=== PATIENT | male | born 1960 | race Caucasian/White ===

== ENCOUNTER 2016-12-26 18:08 | Emergency (ER) | payer OTHER ==
[~2016-12-26] VITALS: Ht 182.9 cm; Wt 109.1 kg
[~2016-12-26 18:08] MED LIST: ADVIL PM1 TABLET PO; ADVIL200 MG PO; AMBIEN5 MG PO; AMITIZA24 MICROGR PO; ATIVAN0.5 MG PO; Advil PM PO; BACLOFEN10 MG PO; CITALOPRAM HBR20 MG PO; CITALOPRAM HBR40 MG PO; CLONIDINE HCL0.1 MG PO; DILAUDID4 MG PO; ECOTRIN325 MG PO; GABAPENTIN600 MG PO; GLUCOPHAGE1000 MG PO; GLUCOPHAGE500 MG PO; HYDROMORPHONE; JANUVIA25 M1 PO; LISINOPRIL10 MG PO; METFORMIN HCL500 MG PO; MORPHINE; MORPHINE PAIN PUMP; OMEPRAZOLE40 M1 PO; PERCOCET 10/1 TABLET PO; PRAVACHOL80 MG PO; PRAVASTATIN SOD20 MG PO; VALIUM2 MG PO; VALIUM5 MG PO; VERAPAMIL HCL180 MG PO; VERELAN 180 MG180 MG PO; ZYRTEC10 M3 PO; Zestril,Prinivil PO
[2016-12-26 19:18] LABS: EOSINOPHIL (%) 0.2 % (0-5); HEMATOCRIT 41.1 % (38.0-50.0); IMMATURE GRANULOCYTE (%) 0.8 % (0.0-0.7); IMMATURE GRANULOCYTE COUNT 0.1 K/uL; INSTRUMENT ABS NEUTROPHIL CT 10.7 K/uL; LYMPHOCYTE COUNT 0.6 K/uL (1.0-2.8); MCH 28.5 PG (29.0-34.0); MCHC 32.6 G/DL (30.0-36.0); MCV 87.4 FL (86-99); MEAN PLAT.VOLUME 10.5 uM^3 (9.0-12.4); MONOCYTE (%) 4.5 % (3-12); MONOCYTE COUNT 0.5 K/uL (0-0.8); NEUTROPHIL (%) 89.2 % (45-76); NEUTROPHIL COUNT 10.7 K/uL (1.8-6.4); PLATELET COUNT 176 K/uL (156-360); RBC DIS.WIDTH-CV 13.4 % (11.8-14.6); RBC DIS.WIDTH-SD 42.9 % (39-53)
[2016-12-26 19:29] LABS: CHLORIDE 108 mEq/L (99-109); SODIUM 144 mEq/L (136-147)
[2016-12-26 19:32] LABS: GLUCOSE 187 mg/dL (70-99)
[2016-12-26 19:33] LABS: ANION GAP 12 MEQ/L (2-14)
[2016-12-26 19:34] LABS: TOTAL BILIRUBIN 0.3 mg/dL (0.0-1.0)
[2016-12-26 19:35] LABS: ALKALINE PHOSPHATASE 126 IU/L (3-129); GFR ESTIMATE (CALCULATED) 35 mL/min/
[2016-12-26 19:36] LABS: UREA NITROGEN (BUN) 21 mg/dL (9-23)
[2016-12-26 19:38] LABS: CREATINE KINASE 459 IU/L (1-294); TOTAL CK 459 IU/L (1-294)
[2016-12-26 19:41] LABS: TROP-I INTERPRETATION NEGATIVE; TROPONIN-I < 0.01 ng/mL (0.0-0.30)
[2016-12-26 19:45] LABS: CK-MB 3.7 ng/mL (0.0-4.9)
[2016-12-26 21:03] LABS: ADD MIUA? YES; BILIRUBIN NEGATIVE; BLOOD MODERATE; COLOR YELLOW ((YELLOW)); GLUCOSE (STRIP) NEGATIVE; KETONES NEGATIVE; LEUKOCYTES NEGATIVE; NITRITE NEGATIVE; PROTEIN (STRIP) 30; SPECIFIC GRAVITY 1.011 (1.000-1.030); UROBILINOGEN 0.2 MG/DL (0.2-1.0)
[2016-12-26 21:12] LABS: BACTERIA NONE SEEN /HPF; EPITHELIAL CELLS NONE SEEN /HPF; HYALINE CASTS 0-5 /LPF; MUCUS TRACE /LPF; RED BLOOD CELLS 0-5 /HPF (0-5); UCUL ADDED? NO; WHITE BLOOD CELLS 0-5 /HPF (0-5)
[2016-12-26 21:13] LABS: ADD MEDTOX COMMENT Y; AMPHETAMINE NEGATIVE (500 ng/mL); BARBITURATES NEGATIVE (200 ng/mL); BENZODIAZEPINES PRESUMPTIVE POSITIVE (150 ng/mL); COCAINE NEGATIVE (150 ng/mL); INTERNAL CONTROLS VALID? YES; METHADONE NEGATIVE (200 ng/mL); METHAMPHETAMINE NEGATIVE (500 ng/mL); OPIATES (MORPHINE) PRESUMPTIVE POSITIVE (100 ng/mL); OXYCODONE NEGATIVE (100 ng/mL); PHENCYCLIDINE NEGATIVE (25 ng/mL); PROPOXYPHENE NEGATIVE (300 ng/mL); THC CANNABINOIDS NEGATIVE (50 ng/mL); TRICYCLIC ANTIDEPRESSANTS PRESUMPTIVE POSITIVE (300 ng/mL)
[2016-12-26] MEDS ORDERED: CITALOPRAM HBR20 MG PO (21:18)
[2016-12-26] MEDS ORDERED: PRAVACHOL80 MG PO (21:18)
[2016-12-26] MEDS ORDERED: AMBIEN10 MG PO (21:19)
[2016-12-26] MEDS ORDERED: FORTAMET500 M1 PO (21:19)
[2016-12-26] MEDS ORDERED: FLEXERIL10 MG PO (21:20)
[2016-12-26 22:03] LABS: BENZODIAZEPINES, URINE SCREEN POSITIVE (200 ng/mL)
[2016-12-26 22:23] VITALS: BP 153/77
== END 2016-12-26 22:22 | disposition left against medical advice (07) ==
LOC: EME 18:08
PROVIDERS: Emergency Medicine
DX: R55 Syncope and collapse (principal); N17.9 Acute kidney failure, unspecified; Z79.891 Long term (current) use of opiate analgesic; E11.9 Type 2 diabetes mellitus without complications; E78.5 Hyperlipidemia, unspecified; Z79.84 Long term (current) use of oral hypoglycemic drugs; Z88.2 Allergy status to sulfonamides; Z88.1 Allergy status to other antibiotic agents
CPT/HCPCS: 70450; 71010; 80053; 81003; 82550; 82553; 84484; 84999; 85025; 93005; 99281; 99285; J1630; J2310; J7030

== ENCOUNTER 2017-03-07 15:58 | Inpatient (IN) | payer OTHER ==
[~2017-03-07] VITALS: Ht 182.9 cm; Wt 108.0 kg
[~2017-03-07 15:58] MED LIST changes: +AMBIEN10 MG PO; +FLEXERIL5 MG PO; +FORTAMET500 M1 PO
[2017-03-07 16:42] LABS: HEMATOCRIT 37.7 % (38.0-50.0); MCH 28.2 PG (29.0-34.0); MCHC 33.2 G/DL (30.0-36.0); MCV 84.9 FL (86-99); MEAN PLAT.VOLUME 10.7 uM^3 (9.0-12.4); PLATELET COUNT 207 K/uL (156-360); RBC DIS.WIDTH-CV 15.4 % (11.8-14.6); RBC DIS.WIDTH-SD 47.2 % (39-53); RED BLOOD COUNT 4.44 M/uL (4.00-5.50); WHITE BLOOD COUNT 9.6 K/uL (4.1-10.2)
[2017-03-07 16:43] LABS: INTER. NORMALIZED RATIO 1.1; PROTHROMBIN TIME 12.4 SEC (10.2-12.9)
[2017-03-07 16:47] LABS: CHLORIDE 113 mEq/L (99-109); POTASSIUM 3.9 mEq/L (3.7-5.4); SODIUM 142 mEq/L (136-147)
[2017-03-07 16:48] LABS: MAGNESIUM 1.9 mg/dL (1.3-2.7)
[2017-03-07 16:49] LABS: GLUCOSE 108 mg/dL (70-99)
[2017-03-07 16:50] LABS: ANION GAP 11 MEQ/L (2-14)
[2017-03-07 16:53] LABS: GFR ESTIMATE (CALCULATED) 44 mL/min/
[2017-03-07 16:54] LABS: UREA NITROGEN (BUN) 22 mg/dL (9-23)
[2017-03-07 16:59] LABS: TROP-I INTERPRETATION NEGATIVE; TROPONIN-I 0.01 ng/mL (0.0-0.30)
[2017-03-07 22:37] VITALS: BP 154/76
[2017-03-07 22:40] VITALS: BP 149/90
[2017-03-08] VITALS (13 sets, daily range): BP systolic 107–182; BP diastolic 55–97
[2017-03-08 00:38] LABS: METH RESISTANT S AUREUS PCR POSITIVE (NEGATIVE)
[2017-03-08 00:40] LABS: PROBE CHECK PASS
[2017-03-08 05:25] LABS: HEMATOCRIT 38.4 % (38.0-50.0); MCH 27.5 PG (29.0-34.0); MCV 85.7 FL (86-99); MEAN PLAT.VOLUME 11.1 uM^3 (9.0-12.4); PLATELET COUNT 201 K/uL (156-360); RBC DIS.WIDTH-CV 15.3 % (11.8-14.6); RBC DIS.WIDTH-SD 47.9 % (39-53); RED BLOOD COUNT 4.48 M/uL (4.00-5.50); WHITE BLOOD COUNT 7.2 K/uL (4.1-10.2)
[2017-03-08 05:46] LABS: ANION GAP 10 MEQ/L (2-14); CHLORIDE 109 MEQ/L (99-109); GFR ESTIMATE (CALCULATED) > 59 mL/min/; GLUCOSE 109 mg/dL (70-99); POTASSIUM 3.9 MEQ/L (3.7-5.4); SAMPLE HEMOLYSIS CHECK 0; SAMPLE ICTERIC CHECK 0; SAMPLE LIPEMIA CHECK 0; SODIUM 144 MEQ/L (136-147); UREA NITROGEN (BUN) 17 mg/dL (9-23)
[2017-03-08 07:56] LABS: POINT-OF-CARE METER ID UU13113696; POINT-OF-CARE USER ID HMLCJM07
[2017-03-08 12:55] LABS: POINT-OF-CARE METER ID UU13113731; POINT-OF-CARE USER ID 612031313
[2017-03-08 17:26] LABS: POINT-OF-CARE METER ID UU14208751; POINT-OF-CARE USER ID 612031313
[2017-03-08 21:29] LABS: POINT-OF-CARE METER ID UU14208751
[2017-03-09] VITALS: BP 165/87
[2017-03-09 04:00] VITALS: BP 170/92
[2017-03-09 08:00] VITALS: BP 172/92
[2017-03-09 08:17] LABS: POINT-OF-CARE METER ID UU14208751
[2017-03-09] MEDS ORDERED: HYDROCHLOROTH12.5 M3 PO (10:10)
[2017-03-09 11:57] LABS: POINT-OF-CARE METER ID UU14208751
[2017-03-09 12:00] VITALS: BP 156/82
[2017-03-09 13:00] VITALS: BP 148/85
[2017-03-09 14:00] VITALS: BP 164/85
== END 2017-03-09 16:44 | disposition home or self-care (01) | DRG 244 ==
LOC: EME 15:58 → 4WEST 19:50 → EDOF 19:50 → ENRESERV 19:51 → 4WEST 22:30 → ENPENDDIS 03-09 → 4WEST 03-09 01:51
PROVIDERS: Emergency Medicine; Internal Medicine Critical Care Medicine
DX: I44.2 Atrioventricular block, complete (principal); I12.9 Hypertensive chronic kidney disease with stage 1 through stage 4 chronic kidney disease, or unspecified chronic kidney disease; G89.29 Other chronic pain; Z96.89 Presence of other specified functional implants; E78.00 Pure hypercholesterolemia, unspecified; E11.22 Type 2 diabetes mellitus with diabetic chronic kidney disease; N18.9 Chronic kidney disease, unspecified; G43.909 Migraine, unspecified, not intractable, without status migrainosus; R55 Syncope and collapse; E78.5 Hyperlipidemia, unspecified; E66.9 Obesity, unspecified; R00.1 Bradycardia, unspecified; K21.9 Gastro-esophageal reflux disease without esophagitis; F41.9 Anxiety disorder, unspecified; Z95.0 Presence of cardiac pacemaker; Z79.899 Other long term (current) drug therapy; Z97.8 Presence of other specified devices; Z87.891 Personal history of nicotine dependence
CPT/HCPCS: 71010; 80048; 82948; 83735; 84484; 85027; 85610; 87641; 93005; 99281; 99285; C1785; C1892; C1894; C1898; J0360; J1200; J1644; J1815; J2250; J3010; S0020